=== PATIENT | male | born 1950 | race Caucasian/White ===

== ENCOUNTER → 2017-04-27 | Outpatient (CLI) | payer MEDICARE | END | disposition home or self-care (01) | LOC: PLD 14:09 → LAB SHORT 14:09 | DX: D22.5 Melanocytic nevi of trunk (principal) | CPT/HCPCS: 88305 ==

== ENCOUNTER → 2017-06-14 | Outpatient (CLI) | payer MEDICARE | LOC: LAB SHORT 14:15 → PLD 14:15 | DX: D22.5 Melanocytic nevi of trunk (principal) | CPT/HCPCS: 88305 ==

== ENCOUNTER → 2017-10-28 | Outpatient (CLI) | payer MEDICARE | LOC: LAB SHORT 14:31 → LAB 14:31 | DX: N52.9 Male erectile dysfunction, unspecified (principal) | CPT/HCPCS: 84402; 84403 ==

== ENCOUNTER 2019-04-17 11:36 | Day surgery (SDC) | payer MEDICARE ==
[~2019-04-17] VITALS: Ht 177.8 cm; Wt 84.7 kg
[~2019-04-17 11:36] MED LIST: ALFU10 PO; DIALYVITE50000 UNIT PO; HAIR, SKIN AND1 EAC3 PO; MULTI-DAY PLUS1 EAC1 PO; SILDENAFIL20 MG PO; ST. JOSEPH ASPI81 MG PO
--- NOTE | 2019-04-17 12:21 | NUR ---
04/17/19 1221 Ricky Steel 1ST IV ATEMPT IN RIGH HAND VEIN BLEW AND 2 ND ATTEMPT RIGHT FOREARM VEIN BLEW-CMT 3RD IV ATTEMPT ON RIGHT HAND BY RN VEIN BLEW-CMT
== END 2019-04-17 14:27 | disposition home or self-care (01) ==
LOC: ORSCSDS 11:36
PROVIDERS: Student in an Organized Health Care Education/Training Program
PROC: 0DB58ZX Excision of Esophagus, Via Natural or Artificial Opening Endoscopic, Diagnostic (ICD-10-PCS; principal; 2019-04-17 13:15)
PROC: 0DB68ZX Excision of Stomach, Via Natural or Artificial Opening Endoscopic, Diagnostic (ICD-10-PCS; principal; 2019-04-17 13:15)
DX: R10.13 Epigastric pain (principal); K21.9 Gastro-esophageal reflux disease without esophagitis; K22.70 Barrett's esophagus without dysplasia; K44.9 Diaphragmatic hernia without obstruction or gangrene; I10 Essential (primary) hypertension; Z79.899 Other long term (current) drug therapy; Z79.82 Long term (current) use of aspirin
CPT/HCPCS: J2704; J7120

== ENCOUNTER → 2020-01-11 | Outpatient (CLI) | payer MEDICARE ==
[~2020-01-11] MED LIST changes: +OMEPRAZOLE MAGN20 MG PO
== END ==
LOC: LAB SHORT 12:27 → LAB 12:27
DX: D22.61 Melanocytic nevi of right upper limb, including shoulder (principal)
CPT/HCPCS: 88305

== ENCOUNTER 2020-01-25 08:12 | Day surgery (SDC) | payer MEDICARE ==
[~2020-01-25] VITALS: Ht 177.8 cm; Wt 83.0 kg
== END 2020-01-25 10:25 | disposition home or self-care (01) ==
LOC: ORSCSDS 08:12
PROVIDERS: Student in an Organized Health Care Education/Training Program
PROC: 0DB68ZX Excision of Stomach, Via Natural or Artificial Opening Endoscopic, Diagnostic (ICD-10-PCS; principal; 2020-01-25 09:30)
PROC: 0DB58ZX Excision of Esophagus, Via Natural or Artificial Opening Endoscopic, Diagnostic (ICD-10-PCS; principal; 2020-01-25 09:30)
DX: K22.70 Barrett's esophagus without dysplasia (principal); K44.9 Diaphragmatic hernia without obstruction or gangrene; I10 Essential (primary) hypertension; Z79.82 Long term (current) use of aspirin; Z79.899 Other long term (current) drug therapy
CPT/HCPCS: 88305; 88312; 88342; J2704; J7120

== ENCOUNTER → 2020-07-17 | Outpatient (CLI) | payer MEDICARE | LOC: LAB 12:04 → LAB SHORT 12:04 | DX: D48.5 Neoplasm of uncertain behavior of skin (principal); D22.9 Melanocytic nevi, unspecified | CPT/HCPCS: 88305 ==

== ENCOUNTER → 2020-07-31 | Outpatient (CLI) | payer MEDICARE | LOC: LAB 08:12 → LAB SHORT 08:12 | DX: D48.5 Neoplasm of uncertain behavior of skin (principal) | CPT/HCPCS: 88305 ==

== ENCOUNTER → 2021-01-22 | Outpatient (CLI) | payer MEDICARE | END | disposition home or self-care (01) | LOC: LAB SHORT 12:29 → LAB 12:29 | DX: D22.5 Melanocytic nevi of trunk (principal); L57.0 Actinic keratosis; L81.4 Other melanin hyperpigmentation | CPT/HCPCS: 88305 ==

== ENCOUNTER → 2022-01-29 | Outpatient (CLI) | payer OTHER | LOC: LAB SHORT 12:34 → PLD 12:34 | DX: L57.0 Actinic keratosis (principal) | CPT/HCPCS: 88305 ==

== ENCOUNTER → 2022-12-15 | Outpatient (CLI) | payer OTHER ==
[2022-12-15 16:51] LABS: LDL/HDL RATIO 1.1
[2022-12-15 16:52] LABS: Alanine Aminotransfer (ALT/SGP 46 U/L (12-78); Albumin, Blood 4.2 g/dL (3.4-5.0); Albumin/Globulin Ratio 1.2 (0.8-1.8); Alk Phos 68 U/L (50-136); Anion Gap 1 mmol/L (6-16); Aspartate Aminotrans (AST/SGOT 34 U/L (12-37); Bilirubin, Total 0.5 mg/dL (0.1-1.0); Blood Urea Nitrogen 17 mg/dL (8-24); Bun/Creatinine Ratio 14.4 (12.0-20.0); CHOL/HDL RATIO 2.4; CO2, Blood 29 mmol/L (21-32); Calcium, Blood 9.4 mg/dL (8.5-10.1); Chloride, Blood 108 mmol/L (98-108); Cholesterol 152 mg/dL (50-200); Creatinine, Blood 1.18 mg/dL (0.60-1.20); Globulin, Blood 3.4 g/dL (2.2-4.0); Glomerular Filtration Rate 66 (60-); Glucose, Blood 104 mg/dL (70-99); HDL Cholesterol 63 mg/dL (>39); Low Density Lipoprotein Chol 69 mg/dL (0-110); Potassium, Blood 4.4 mmol/L (3.5-5.5); Sodium, Blood 138 mmol/L (136-145); Total Protein, Blood 7.6 g/dL (6.4-8.2); Triglycerides 98 mg/dL (30-160); Very Low Density Lipoprot Chol 19 mg/dL (6-32)
== END | disposition home or self-care (01) ==
LOC: LAB SHORT 13:49 → LAB 13:49
PROVIDERS: Hospitalist
DX: I25.10 Atherosclerotic heart disease of native coronary artery without angina pectoris (principal)
CPT/HCPCS: 80053; 80061

== ENCOUNTER 2023-07-09 07:58 | Observation (INO) | payer OTHER ==
[~2023-07-09] VITALS: Ht 175.3 cm; Wt 70.1 kg
[2023-07-09 08:57] LABS: BASOPHILS ABSOLUTE AUTO 0.06 K/mm3 (0.00-0.23); BASOPHILS PERCENT AUTO 1 % (0-2); EOSINOPHILS ABSOLUTE AUTO 0.05 K/mm3 (0.00-0.68); EOSINOPHILS PERCENT AUTO 1 % (0-6); Hematocrit 34.8 % (37.0-53.0); Hemoglobin 11.8 g/dL (13.5-17.5); IMMATURE GRAN ABSOLUTE AUTO 0.02 K/mm3 (0.00-0.10); IMMATURE GRAN PERCENT AUTO 0 % (0-1); LYMPHOCYTES ABSOLUTE AUTO 0.91 K/mm3 (0.84-5.20); LYMPHOCYTES PERCENT AUTO 13 % (21-46); MONOCYTES ABSOLUTE AUTO 0.86 K/mm3 (0.16-1.47); MONOCYTES PERCENT AUTO 12 % (4-13); Mean Corpuscular HGB 29.9 pg (26.0-34.0); Mean Corpuscular HGB Conc 33.9 g/dL (31.5-36.5); Mean Corpuscular Volume 88 fL (80-100); Mean Platelet Volume 11.3 fL (9.1-12.4); NEUTROPHILS ABSOLUTE AUTO 5.35 K/mm3 (1.96-9.15); NEUTROPHILS PERCENT AUTO 74 % (41-73); Platelet Count 192 K/mm3 (150-400); RDW Coefficient Variation 13.2 % (11.7-14.2); RDW Standard Deviation 43.1 fL (35.1-46.3); Red Blood Cell Count 3.94 M/mm3 (4.30-5.90); White Blood Cell Count 7.25 K/mm3 (4.00-11.30)
[2023-07-09 09:12] LABS: Albumin, Blood 3.6 g/dL (3.4-5.0); Albumin/Globulin Ratio 1.1 (0.8-1.8); Bilirubin, Total 0.5 mg/dL (0.1-1.0); Bun/Creatinine Ratio 16.4 (12.0-20.0); Calcium, Blood 8.6 mg/dL (8.5-10.1); Creatinine, Blood 1.16 mg/dL (0.60-1.20); Globulin, Blood 3.2 g/dL (2.2-4.0); Total Protein, Blood 6.8 g/dL (6.4-8.2)
[2023-07-09 10:06] LABS: Thyroid Stimulating Hormone 3.31 uIU/mL (0.360-4.800)
[2023-07-09] MEDS ORDERED: Acetaminophen 325 MG TABLET PO PRN (12:55)
[2023-07-09] MEDS ORDERED: NS 1,000 ML IV SCH (13:00)
[2023-07-09 15:47] VITALS: BP 160/82
--- NOTE | 2023-07-09 17:07 | NUR ---
TRANSFER UPDATE REPORT RECIEVED FROM ER NURSE AT 1520. ASSISTANT CORPORATE CONTROLLER PHILLY RECIEVED THE REPORT WITH THIS RN PRESENT VIA SPEAKER PHONE. PT ARRIVED TO PCU AT 1547 VIA GURNEY AND ON RA. PT ABLE TO AMBULATE FROM GURACTON TO BED ON HIS OWN WITH NO ASSISATANCE, TOLERATED WELL. PT A/OX4 AT TIME OF ARRIVAL ABLE TO GIVE HIS HEALTH HX. PT REPORTED NOT RECALLING EVENT OF LOC. PT STATED "I THOUGHT I WAS JUST PUSHING MYSELF FROM THE TABLE BUT MY FRIEND SAID I WAS JUST SLIDING DOWN TOWARD THE FLOOR." NO RPEORT OF CHEST PAIN/PRESSURE AT TIME OF ARRIVAL. NO RPEORT OF SOB OR DIZZINESS. PT INSTRUCTED TO CALL FOR ASSISTANCE VIA CALL LIGHT DUE TO THE SYNCOPAL EPISODES, PT VERBALIZED UNDERSTANDING.
--- NOTE | 2023-07-09 17:27 | NUR ---
THIS RN OVERSAW AND REVIEWED STUDENT RN CHARTING.
--- NOTE | 2023-07-09 18:02 | NUR ---
SHIFT SUMMARY NO ACUTE CHANGES FROM ARRIVAL ON UNIT. PT IN BED AND CALL LIGHT IN REACH. NS RUNNING PER ORDER.
[2023-07-09 19:29] VITALS: BP 150/73
[2023-07-09 23:01] VITALS: BP 161/89
[2023-07-10 04:30] VITALS: BP 159/80
--- NOTE | 2023-07-10 04:51 | NUR ---
END OF SHIFT NOTE: NO ACUTE EVENTS OVERNIGHT. PT REMAINS ALERT, ORIENTED X4. ABLE TO CALL APPROPRIATELY & COMMUNICATE NEEDS W/ STAFF. HR 50-70'S, SINUS ON TELE. SBP 150-160'S, MAP >65. DENIES CHEST PAIN/PRESSURE. SPO2 >95% ON RA, RESPIRATIONS EVEN & UNLABORED. PT DENIES SOB. AFEBRILE. NS INFUSING PER EMAR. PT UP TO BATHROOM W/ 1P SBA FOR LINE MANAGEMENT. INDEPENDENTLY REPOSITIONING SELF IN BED. DENIES PAIN. NO OTHER NEEDS AT THIS TIME. CALL LIGHT IN REACH.
[2023-07-10 04:55] LABS: BASOPHILS ABSOLUTE AUTO 0.07 K/mm3 (0.00-0.23); BASOPHILS PERCENT AUTO 1 % (0-2); EOSINOPHILS ABSOLUTE AUTO 0.06 K/mm3 (0.00-0.68); EOSINOPHILS PERCENT AUTO 1 % (0-6); Hemoglobin 12.3 g/dL (13.5-17.5); IMMATURE GRAN ABSOLUTE AUTO 0.02 K/mm3 (0.00-0.10); IMMATURE GRAN PERCENT AUTO 0 % (0-1); LYMPHOCYTES ABSOLUTE AUTO 1.59 K/mm3 (0.84-5.20); LYMPHOCYTES PERCENT AUTO 25 % (21-46); MONOCYTES ABSOLUTE AUTO 1.19 K/mm3 (0.16-1.47); MONOCYTES PERCENT AUTO 19 % (4-13); Mean Corpuscular HGB 30.4 pg (26.0-34.0); Mean Corpuscular HGB Conc 34.2 g/dL (31.5-36.5); Mean Corpuscular Volume 89 fL (80-100); Mean Platelet Volume 11.4 fL (9.1-12.4); NEUTROPHILS ABSOLUTE AUTO 3.45 K/mm3 (1.96-9.15); NEUTROPHILS PERCENT AUTO 54 % (41-73); Platelet Count 221 K/mm3 (150-400); RDW Coefficient Variation 13.5 % (11.7-14.2); RDW Standard Deviation 44.3 fL (35.1-46.3); Red Blood Cell Count 4.05 M/mm3 (4.30-5.90); White Blood Cell Count 6.38 K/mm3 (4.00-11.30)
[2023-07-10 05:18] LABS: Calcium, Blood 8.9 mg/dL (8.5-10.1); Creatinine, Blood 1.12 mg/dL (0.60-1.20); Potassium, Blood 4.2 mmol/L (3.5-5.5)
[2023-07-10] MEDS ORDERED: Omeprazole 20 MG CapCR PO SCH (06:00)
[2023-07-10 07:43] VITALS: BP 156/80
[2023-07-10] MEDS ORDERED: Enoxaparin 40 MG/0.4 ML SYR SC SCH (09:00)
[2023-07-10] MEDS ORDERED: Tamsulosin HCl 0.4 MG Cap PO SCH (09:00)
[2023-07-10] MEDS ORDERED: Aspirin 81 MG TabEC PO SCH (09:00)
[2023-07-10] MEDS ORDERED: Cholecalciferol 1000 Unit Tablet (=25MCG) PO SCH (09:00)
[2023-07-10] MEDS ORDERED: Multivitamins/Minerals TAB PO SCH (09:00)
[2023-07-10] MEDS ORDERED: METO25ER PO (10:18)
[2023-07-10] MEDS ORDERED: ATOR40TA PO (10:19)
--- NOTE | 2023-07-10 11:39 | NUR ---
DISCHARGE UPDATE DISCHARGE PACKET GONE OVER WITH PT AT 1120. PT DISCHARGED AT 1130. PT REQUESTED TO WALK DURING DISCHARGE. PT BELONGINGS IN BAG AND WITH PT AT TIME OF DISCHARGE. DISCHARGE PACKET IN PT PERSONAL BELONGING BAG AT TIME OF DISCHARGE. PT EDUCATED ON ZIO PATCH THAT WAS IN PLACE AT TIME OF DISCHARGE, PT TAUGHT BACK INSTRUCTIONS.
== END 2023-07-10 11:30 | disposition home or self-care (01) ==
LOC: ER 07:58 → PCU 07:59
PROVIDERS: Emergency Medicine; Student in an Organized Health Care Education/Training Program; ADMIT Internal Medicine
DX: R55 Syncope and collapse (principal); I10 Essential (primary) hypertension; E78.5 Hyperlipidemia, unspecified; K21.9 Gastro-esophageal reflux disease without esophagitis; K27.9 Peptic ulcer, site unspecified, unspecified as acute or chronic, without hemorrhage or perforation; I25.10 Atherosclerotic heart disease of native coronary artery without angina pectoris; Z79.899 Other long term (current) drug therapy; Z79.82 Long term (current) use of aspirin
CPT/HCPCS: 36415; 80048; 80053; 83735; 83880; 84443; 84484; 85025; 93005; 93010; 93246; 99285-25; A9270; G0378; J7030

== ENCOUNTER → 2024-10-09 | Outpatient (CLI) | payer OTHER ==
[~2024-10-09] MED LIST changes: +ATOR40TA PO; +METO25ER PO
[2024-10-09 14:39] LABS: BASOPHILS ABSOLUTE AUTO 0.10 K/mm3 (0.00-0.23); BASOPHILS PERCENT AUTO 2 % (0-2); EOSINOPHILS ABSOLUTE AUTO 0.09 K/mm3 (0.00-0.68); EOSINOPHILS PERCENT AUTO 1 % (0-6); Hematocrit 37.5 % (37.0-53.0); Hemoglobin 12.7 g/dL (13.5-17.5); IMMATURE GRAN ABSOLUTE AUTO 0.02 K/mm3 (0.00-0.10); IMMATURE GRAN PERCENT AUTO 0 % (0-1); LYMPHOCYTES ABSOLUTE AUTO 1.77 K/mm3 (0.84-5.20); LYMPHOCYTES PERCENT AUTO 28 % (21-46); MONOCYTES ABSOLUTE AUTO 0.63 K/mm3 (0.16-1.47); MONOCYTES PERCENT AUTO 10 % (4-13); Mean Corpuscular HGB Conc 33.9 g/dL (31.5-36.5); Mean Corpuscular Volume 91 fL (80-100); NEUTROPHILS ABSOLUTE AUTO 3.75 K/mm3 (1.96-9.15); NEUTROPHILS PERCENT AUTO 59 % (41-73); NRBC ABSOLUTE 0.00 K/mm3 (0.00-0.02); NRBC Auto 0.0 /100 WBC (0.0-0.2); Platelet Count 221 K/mm3 (150-400); RDW Coefficient Variation 12.9 % (11.7-14.2); RDW Standard Deviation 42.7 fL (35.1-46.3)
[2024-10-09 15:03] LABS: Alanine Aminotransfer (ALT/SGP 36 U/L (12-78); Albumin, Blood 3.9 g/dL (3.4-5.0); Albumin/Globulin Ratio 1.3 (0.8-1.8); Anion Gap 7 mmol/L (3-11); Aspartate Aminotrans (AST/SGOT 29 U/L (12-37); Bilirubin, Total 0.5 mg/dL (0.1-1.0); Blood Urea Nitrogen 20 mg/dL (8-24); CHOL/HDL RATIO 2.2; CO2, Blood 26 mmol/L (21-32); Calcium, Blood 9.5 mg/dL (8.5-10.1); Chloride, Blood 109 mmol/L (98-108); Cholesterol 135 mg/dL (50-200); Creatinine, Blood 1.19 mg/dL (0.60-1.20); Globulin, Blood 2.9 g/dL (2.2-4.0); Glucose, Blood 100 mg/dL (70-99); HDL Cholesterol 61 mg/dL (>39); LDL/HDL RATIO 1.0; Low Density Lipoprotein Chol 58 mg/dL (0-110); Potassium, Blood 4.6 mmol/L (3.5-5.5); Sodium, Blood 137 mmol/L (136-145); Total Protein, Blood 6.8 g/dL (6.4-8.2); Triglycerides 78 mg/dL (30-160); Very Low Density Lipoprot Chol 15 mg/dL (6-32)
[2024-10-10 17:55] LABS: Ferritin, Serum 10 ng/mL (26-388); Total Iron Binding Capacity 362 ug/dL (250-450)
== END ==
LOC: LAB SHORT 08:00 → LAB 08:00
PROVIDERS: Hospitalist
DX: I25.10 Atherosclerotic heart disease of native coronary artery without angina pectoris (principal); D50.8 Other iron deficiency anemias
CPT/HCPCS: 80053; 80061; 82728; 83540; 83550; 85025